=== PATIENT | female | born 1975 | race Asian ===

== ENCOUNTER 2021-02-05 15:25 | Outpatient (CLI) | payer BC ==
--- NOTE | 2021-02-05 17:10 | Ultrasound Report ---
PROCEDURE: Pelvic w/Transvaginal INDICATIONS: PELVIC PERINEAL PAIN TECHNIQUE: Real-time scanning was performed of the pelvic organs, with image documentation. Additional endovagi nal scanning was necessary due to incomplete visualization of the adnexal and endometrial structures by transabdominal scanning. COMPARISON: None. FINDINGS: No pathologic free abdominal or pelvic fluid. Uterus: Uterus is normal in size at 8.2 x 4.5 x 5.2 cm. The endometrium measures 2-3 mm in combined thickness. Endometrium not well seen secondary to uterine fibroid Midline posterior intramural fibroid measuring 3.3 x 2.6 x 3.0 cm. Right ovary measures 3.1 x 1.6 x 1.7 cm the volume is 4.2 cc. Right ovarian presumed follicles measur ing up to 11 mm Left ovary measures 2.9 x 2.4 x 1.9 cm with a volume of 6.8 cc. IMPRESSION: Uterine fibroid. Presumed physiologic follicular change in the ovaries. Otherwise, unremarkable examination. Reviewed by: Christiano Hook MD on 02/05/2021 5:08 PM PDT Approved by: Christiano Hook MD on 02/05/2021 5:08 PM PDT Station ID: [id number]
== END 2021-02-05 15:26 | disposition home or self-care (01) ==
LOC: DI 15:25
PROVIDERS: ATTEND Physician Assistant
DX: D25.1 Intramural leiomyoma of uterus (principal)

== ENCOUNTER 2021-08-09 15:45 | Outpatient (CLI) | payer BC ==
--- NOTE | 2021-08-09 17:48 | Ultrasound Report ---
PROCEDURE: Pelvic w/Transvaginal INDICATIONS: PELVIC PAIN TECHNIQUE: Real-time scanning was performed of the pelvic organs, with image documentation. Additional endovagi nal scanning was necessary due to incomplete visualization of the adnexal and endometrial structures by transabdominal scanning. COMPARISON: None. FINDINGS: No pathologic free abdominal or pelvic fluid. Uterus: Uterus is enlarged and measures 10.5 x 4.8 x 5.2 cm in size. Coarsely heterogeneous myometri al echotexture is seen. A 1.7 x 1.6 x 1.5 cm intramural fibroid is seen in midline of anterior myomet rium. The endometrium is poorly visualized due to mass effect from adjacent large fibroid. 6 to 7 mm cysts are also noted within the myometrium. No definite endometrial mass or fluid is seen. Possible p olyp versus debris is noted in endocervical canal measures 4 x 3 x 7 mm in size.. Ovaries: Right ovary measures 2.5 x 1.6 x 2.1 cm in size. Left ovary measures 2.6 x 1.4 x 1.7 cm in size. Less than 12 subcentimeter follicular cysts are noted in bilateral ovaries IMPRESSION: 1. Enlarged uterus with heterogeneous myometrial echotexture and anterior uterine fibroid as above. N o gross endometrial mass or fluid. Possible subcentimeter polyp versus debris is seen within endocerv ical canal. [employer] correlation is recommended. 2. Subcentimeter follicles are seen in bilateral ovaries. No gross solid-appearing ovarian lesion. Reviewed by: Monico Alex MD on 08/09/2021 5:47 PM PDT Approved by: Monico Alex MD on 08/09/2021 5:47 PM PDT Station ID: [id number]
== END 2021-08-09 15:46 | disposition home or self-care (01) ==
LOC: DI 15:45
PROVIDERS: ATTEND Obstetrics & Gynecology
DX: D25.1 Intramural leiomyoma of uterus (principal); N99.85 Post endometrial ablation syndrome; R10.2 Pelvic and perineal pain

== ENCOUNTER 2021-08-19 09:35 | Outpatient (CLI) | payer BC ==
[2021-08-19 09:59] LABS: HGB - HEMOGLOBIN 15.6 g/dL (12.0-16.0); MEAN CORPUSCULAR HEMOGLOBIN 24.6 pg (27.0-31.0); MEAN CORPUSCULAR HGB CONC 33.2 g/dL (32.0-36.0); MEAN CORPUSCULAR VOLUME 74.1 fL (81.0-99.0); RED BLOOD COUNT 6.34 10^6/uL (4.20-5.40); WHITE BLOOD COUNT 9.6 x10^3/uL (4.8-10.8)
[2021-08-19 10:12] LABS: ALBUMIN 4.8 g/dL (3.2-5.5); ALBUMIN/GLOBULIN RATIO 1.3 (1.0-2.2); BILIRUBIN,TOTAL 1.3 mg/dL (0.2-1.0); CALCIUM 9.9 mg/dL (8.5-10.3); CREATININE 0.6 mg/dL (0.4-1.0); POTASSIUM 4.5 mmol/L (3.5-5.0); TOTAL PROTEIN 8.4 g/dL (6.7-8.2)
[2021-08-19 12:33] LABS: ESTIMATED AVERAGE GLUCOSE 186 mg/dL (70-100); HEMOGLOBIN A1c% 8.1 % (4.27-6.07)
== END 2021-08-19 09:36 | disposition home or self-care (01) ==
LOC: LAB 09:35
PROVIDERS: ATTEND Obstetrics & Gynecology
DX: E11.65 Type 2 diabetes mellitus with hyperglycemia (principal); I10 Essential (primary) hypertension
CPT/HCPCS: 36415; 80053; 83036; 85027